=== PATIENT | female | born 1980 | race Caucasian/White ===

== ENCOUNTER → 2017-05-09 | Outpatient (CLI) | payer MEDICARE, MEDICAID ==
[~2017-05-09] MED LIST: ADDE30XRPT PO; ALB18R INH; AMPH30TA10 PO; AZIT-1 PO; AZIT-18 PO; BENZ100C4 PO; BENZ200C15 PO; CLON-388 PO; CYCL-277 PO; CYCL10TA29 PO; DIA5 PO; DICL-195 PO; ENZY1CAP3 PO; FLUT16SP19 NS; HYDR-4309 PO; IBUP600T22 PO; KET10 PO; LOR5/325 PO; OMEG500C5 PO; OMEP-137 PO; ONDA4TAB PO; OXYM15MI14 ENA; PRED-1 PO; PSEU120T68 PO; SUCR1TAB85 PO; SUMA100T32 PO; SUMA5SPR6 ENA; TRAM-420 PO; TRAM-627 PO
== END ==
LOC: LAB 12:33
PROVIDERS: ATTEND Urology
DX: R31.1 Benign essential microscopic hematuria (principal)
CPT/HCPCS: 81001

== ENCOUNTER 2017-09-11 15:29 | Emergency (ER) | payer MEDICARE, MEDICAID ==
[2017-09-11] MEDS ORDERED: FLUT16SP19 NS (15:50)
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
[2017-09-11] MEDS ORDERED: IOPAMIDOL 76% 75 ML INFUS BTL 75 ML ONE (16:23)
[2017-09-11 16:37] LABS: PLATELET COUNT, AUTOMATED 273 K/uL (150-450)
--- NOTE | 2017-09-11 17:17 | RADIOLOGY IMAGING REPORT ---
FACILITY: [facility] [place] PATIENT NAME: Sanjuana Hernandez : 1980 MR: [id number] V: [id number] EXAM DATE: ORDERING PHYSICIAN: REBECCA BLUNT TECHNOLOGIST: [place] [facility] [place] Sanjuana [place] : 1980 Visit/Account:[id number] Date of Sevice: 09/11/2017 CT abdomen and pelvis with IV contrast Indication: Left-sided abdominal pain. Comparison: 07/25/2015.. Technique: Axial CT images were obtained through the abdomen and pelvis during injection of nonioni c iodinated intravenous contrast. Reformatted coronal and sagittal images were also obtained. One of the following dose optimization techniques was utilized in the performance of this exam: Autom ated exposure control; adjustment of the mA and/or kV according to the patient's size; or use of an i terative reconstruction technique. Specific details can be referenced in the facility's radiology C T exam operational policy. Contrast: 75 ml of Isovue-370 IV contrast. Findings: Lower lung das: Limited views lower lung field are unremarkable. Liver: Right lobe liver does show a subcentimeter hypodensity which is too small characterize and sta tistically tiny cyst. No other focal abnormality. Biliary: Gallbladder appears unremarkable as well as the intra and extra hepatic biliary system. Pancreas: No focal abnormality. Spleen: Normal appearance. Adrenal glands: Unremarkable. Kidneys / retroperitoneum: No evidence of nephrolithiasis or hydronephrosis. No focal normality. Bowel / peritoneum / mesenteries: The colon is decompressed shows no focal abnormality. The appendix is within normal limits. Small bowel shows no focal abnormality or obstruction. The stomach is partia lly decompressed and grossly normal. Tiny bit of free fluid seen in pelvis is likely physiologic. No free air, fluid collections or areas of inflammation. Small umbilical hernia containing fat. Lymph node assessment: No pathologic adenopathy identified. Pelvic structures: Uterus is retroverted without focal abnormality. The right ovary does show a co llapsing 1.5 cm cyst. The left ovary is unremarkable. The remaining pelvic structures visualized with in normal limits. Vessels: No significant atherosclerotic calcifications seen throughout a nonaneurysmal abdominal aort a and branches. Musculoskeletal / Body wall: No acute or aggressive osseous abnormality. IMPRESSION: 1. No acute intra-abdominal abnormality 2. Right ovary does show 1.5 cm collapsing cyst. 3. Other chronic findings as above. Report Dictated By: Bean Martinez at 09/11/2017 5:06 PM Report E-Signed By: Bean Martinez at 09/11/2017 5:14 PM [id number]
[2017-09-11 17:53] VITALS: BP 115/87
== END 2017-09-11 17:50 | disposition home or self-care (01) ==
LOC: ER 15:46
DX: R10.32 Left lower quadrant pain (principal)
CPT/HCPCS: 74177; 81001; 81025; 85025; 99284; Q9967; 82040; 82247; 82310; 82374; 82435; 82565; 82947; 84075; 84132; 84155; 84295; 84450; 84460; 84520

== ENCOUNTER 2018-05-05 14:33 | Emergency (ER) | payer MEDICARE, MEDICAID ==
[~2018-05-05 14:33] MED LIST changes: -HYDR-4309 PO; +HYDR-653 PO
[2018-05-05] MEDS ORDERED: ONDANSETRON 4 MG ODT TABDP SL ONE (15:10)
[2018-05-05] MEDS ORDERED: NS(*) 0.9% 1000 ML BAG 1,000 ML IV ONE (15:15)
--- NOTE | 2018-05-05 15:15 | ER Report ---
History and Physical Time Seen By MD: 14:50 Hx. of Stated Complaint: BODY ACHES, NAUSEA VOMITING, DIARRHEA HPI/ROS CHIEF COMPLAINT: flu symptoms HISTORY OF PRESENT ILLNESS: 38 year old female presents with nausea and vomiting that started at 0500 this AM. Patient reports she has vomited one more time since then. Reports associated symptoms of chills, fever, body aches, diaphoresis, diarrhea, cough, and abdominal pain. Patient reports she has not been able to keep any fluids down today and has no appetite. REVIEW OF SYSTEMS: Constitutional: Reports body aches, chills, fever, decreased appetite. HEENT: Denies sore throat. Reports nasal congestion, mild frontal headache, and right ear fullness. Respiratory: Reports productive cough with clear mucous. Denies chest pain and SOB. Cardiovascular: No chest pain, no palpitations. Gastrointestinal: Reports nausea, vomiting, abdominal pain. Genitourinary: Denies frequency, urgency, or burning of urination Musculoskeletal: No back pain. Allergies: Coded Allergies: Penicillins (Verified Allergy, Unknown, ANAPHYLAXIS, 05/05/18) promethazine (Verified Allergy, Unknown, ANAPHYLAXIS, 05/05/18) Home Meds Active Scripts Ondansetron 4 Mg Odt (ONDANSETRON 4 MG ODT) 4 Mg Tab.rapdis, 4 MG PO Q6H PRN for NAUSEA/VOMITING, #20 TAB Prov:SARAHDEJA FNP 05/05/18 Reported Medications Fluticasone Prop 50 Mcg Ns (FLONASE 50 MCG NS) 16 Gm [place].susp, 1 SPRAY NS BID, BOT 09/11/17 Sumatriptan (IMITREX) 5 Mg [place], 5 MG CARMEN ONCE, SPRAY 11/07/16 Cyclobenzaprine Hcl (CYCLOBENZAPRINE HCL) 5 Mg Tablet, 1 TAB PO QHS PRN for PAIN, #90 04/28/15 Amphet Asp/Amphet/D-Amphet (ADDERALL 30 MG TABLET) 30 Mg Tablet, 30 MG PO QDAY 06/22/14 Past Medical/Surgical History Patient with significant past medical history of TBI in 2002, chronic pain, migraines, aspiration pneumonia in 2003, hx of narcotic abuse, ptsd. Past surgical history significant for bone marrow aspiration, tonsillectomy, and neck surgery post TBI. Reviewed Nurses Notes: Yes Hx Smoking: No Smoking Status: Never Smoker Exposure to Second Hand Smoke?: No Hx Substance Use Disorder: Yes (narcotic abuse HX) Hx Alcohol Use: Yes (OCC) Constitutional Vital Sign - Last 24 Hours 05/05/18 05/05/18 05/05/18 05/05/18 14:41 14:47 14:48 15:00 Temp 97.4 Pulse 86 78 Resp 16 B/P (MAP) 134/85 (101) 134/85 113/80 (91) Pulse Ox 92 92 O2 Delivery Room Air 05/05/18 05/05/18 05/05/18 05/05/18 15:03 15:18 15:30 15:33 Pulse 82 82 78 B/P (MAP) 106/69 (81) Pulse Ox 93 92 94 05/05/18 05/05/18 05/05/18 05/05/18 15:48 16:00 16:03 16:18 Pulse 83 80 73 B/P (MAP) 99/67 (78) Pulse Ox 88 91 90 05/05/18 16:30 B/P (MAP) 104/70 (81) Physical Exam General Appearance: The patient is alert, has no immediate need for airway protection and no current signs of toxicity. Eyes: Pupils equal and round no injection. HENT: TMs pearly [place] with no erythema, retraction, or bulging bilaterally. Oral mucus membranes dry. Posterior pharynx without erythema or edema. [place] without swelling bilaterally. Respiratory: Chest is non tender, lungs are clear to auscultation with decreased air flow to right base. Cardiac: regular rate and rhythm Gastrointestinal: Abdomen is soft, no masses, bowel sounds normal. Reports tenderness to palpation in LUQ and RLQ. Skin: No rashes or lesions. DIFFERENTIAL DIAGNOSIS: After history and physical exam differential diagnosis was considered for influenza, gastroenteritis, viral syndrome. Medical Decision Making Data Points Result Diagram: 05/05/18 1505 05/05/18 1505 Laboratory Hematology Test 05/05/18 14:43 05/05/18 15:05 Influenza Virus Type A (PCR) Negative (NEGATIVE) Influenza Virus Type B (PCR) Negative (NEGATIVE) Red Blood Count 5.06 M/uL (4.17-5.56) Mean Corpuscular Volume 93.7 fL (80.0-96.0) Mean Corpuscular Hemoglobin 31.5 pg (26.0-33.0) Mean Corpuscular Hemoglobin Concent 33.6 g/dL (32.0-36.0) Red Cell Distribution Width 12.7 % (11.5-14.5) Mean Platelet Volume 7.8 fL (7.2-11.1) Neutrophils (%) (Auto) 92.7 % (39.4-72.5) Lymphocytes (%) (Auto) 2.6 % (17.6-49.6) Monocytes (%) (Auto) 3.3 % (4.1-12.4) Eosinophils (%) (Auto) 0.4 % (0.4-6.7) Basophils (%) (Auto) 1.0 % (0.3-1.4) Nucleated RBC Relative Count (auto) 0.0 /100WBC Neutrophils # (Auto) 7.6 K/uL (2.0-7.4) Lymphocytes # (Auto) 0.2 K/uL (1.3-3.6) Monocytes # (Auto) 0.3 K/uL (0.3-1.0) Eosinophils # (Auto) 0.0 K/uL (0.0-0.5) Basophils # (Auto) 0.1 K/uL (0.0-0.1) Nucleated RBC Absolute Count (auto) 0.00 K/uL Sodium Level 140 mmol/L (137-145) Potassium Level 4.1 mmol/L (3.5-5.0) Chloride Level 105 mmol/L (98-107) Carbon Dioxide Level 26 mmol/L (22-31) Blood Urea Nitrogen 18 mg/dl (7-18) Creatinine 0.70 mg/dl (0.52-1.04) Glomerular Filtration Rate Calc > 60.0 Random Glucose 112 mg/dl (75-110) Calcium Level 9.1 mg/dl (8.4-10.2) Total Bilirubin 0.8 mg/dl (0.2-1.3) Aspartate Amino Transf (AST/SGOT) 25 U/L (0-35) Alanine Aminotransferase (ALT/SGPT) 24 U/L (0-56) Alkaline Phosphatase 63 U/L (0-126) Total Protein 7.4 g/dl (6.3-8.2) Albumin 4.5 g/dl (3.5-5.0) Chemistry Test 05/05/18 14:43 05/05/18 15:05 Influenza Virus Type A (PCR) Negative (NEGATIVE) Influenza Virus Type B (PCR) Negative (NEGATIVE) White Blood Count 8.2 k/uL (4.5-11.0) Red Blood Count 5.06 M/uL (4.17-5.56) Hemoglobin 15.9 g/dL (12.0-16.0) Hematocrit 47.4 % (34.0-47.0) Mean Corpuscular Volume 93.7 fL (80.0-96.0) Mean Corpuscular Hemoglobin 31.5 pg (26.0-33.0) Mean Corpuscular Hemoglobin Concent 33.6 g/dL (32.0-36.0) Red Cell Distribution Width 12.7 % (11.5-14.5) Platelet Count 270 K/uL (150-450) Mean Platelet Volume 7.8 fL (7.2-11.1) Neutrophils (%) (Auto) 92.7 % (39.4-72.5) Lymphocytes (%) (Auto) 2.6 % (17.6-49.6) Monocytes (%) (Auto) 3.3 % (4.1-12.4) Eosinophils (%) (Auto) 0.4 % (0.4-6.7) Basophils (%) (Auto) 1.0 % (0.3-1.4) Nucleated RBC Relative Count (auto) 0.0 /100WBC Neutrophils # (Auto) 7.6 K/uL (2.0-7.4) Lymphocytes # (Auto) 0.2 K/uL (1.3-3.6) Monocytes # (Auto) 0.3 K/uL (0.3-1.0) Eosinophils # (Auto) 0.0 K/uL (0.0-0.5) Basophils # (Auto) 0.1 K/uL (0.0-0.1) Nucleated RBC Absolute Count (auto) 0.00 K/uL Glomerular Filtration Rate Calc > 60.0 Calcium Level 9.1 mg/dl (8.4-10.2) Total Bilirubin 0.8 mg/dl (0.2-1.3) Aspartate Amino Transf (AST/SGOT) 25 U/L (0-35) Alanine Aminotransferase (ALT/SGPT) 24 U/L (0-56) Alkaline Phosphatase 63 U/L (0-126) Total Protein 7.4 g/dl (6.3-8.2) Albumin 4.5 g/dl (3.5-5.0) ED Course/Re-evaluation ED Course Patient admitted to an exam room, history and physical obtained, differential diagnoses considered. Patient reports she woke up this morning at 0500 with nausea, vomiting, and diarrhea. Reports associated symptoms of headache, abdominal pain, fever, chills, body aches, cough, and nasal congestion. Reports vomiting twice this morning and unable to keep fluids or food down. Upon exam patient has slight tenderness to palpation of LUQ and RLQ. Lungs clear to auscultation. Normal heart rate and rhythm. Oral mucus membranes dry. IV started, 1000ml bag NS infused. CBC, CMP, and influenza gathered. CBC and CMP unremarkable except Nuetrophils 92.7. Neutrophil count was likely secondary to demargination caused by the vomiting. Influenza negative. Zofran given for nausea. Patient reports zofran helped the nausea and she reports she is feeling better. The likely cause of patients symptoms is a gastroenteritis. Patient sent home with Zofran prescription and encouraged to push oral fluids. Patient is agreeable to plan. Decision to Disposition Date: May 05, 2018 Decision to Disposition Time: 16:36 Depart Departure Latest Vital Signs Vital Signs Date Time Temp Pulse Resp B/P (MAP) Pulse Ox O2 Delivery O2 Flow Rate FiO2 05/05/18 16:30 104/70 (81) 05/05/18 16:18 73 90 05/05/18 14:47 97.4 16 Room Air Core Temperature (Celsius): 36.84 Impression: Primary Impression: Gastroenteritis Condition: Improved Disposition: HOME OR SELF-CARE Referrals: TONI QUEZADA PA-C (PCP) New Scripts Ondansetron 4 Mg Odt (ONDANSETRON 4 MG ODT) 4 Mg Tab.rapdis 4 MG PO Q6H PRN for NAUSEA/VOMITING, #20 TAB Prov: DEJA SMITH 05/05/18 Patient Instructions: Gastroenteritis (ED) Additional Instructions: Please take zofran every 6 hours as needed for nausea. You may take ibuprofen and tylenol as needed for body aches. Please drink plenty of fluids. You may follow-up with your primary care provider in 2 days if you are still experiencing symptoms. Please return to the ER if your vomiting or diarrhea does not improve, if you have any difficulty breathing, or you develop a fever that does not go away. DEJA SMITH May 05, 2018 15:15
[2018-05-05 15:27] LABS: PLATELET COUNT, AUTOMATED 270 K/uL (150-450)
[2018-05-05 16:30] VITALS: BP 104/70
[2018-05-05] MEDS ORDERED: ONDA4TAB9 PO (16:42)
== END 2018-05-05 16:54 | disposition home or self-care (01) ==
LOC: ER 14:49
DX: K52.9 Noninfective gastroenteritis and colitis, unspecified (principal)
CPT/HCPCS: 85025; 87502; 96360; 99283; J7030; Q0162; 82040; 82247; 82310; 82374; 82435; 82565; 82947; 84075; 84132; 84155; 84295; 84450; 84460; 84520; S0119